=== PATIENT | male | born 1950 | race Caucasian/White ===

== ENCOUNTER → 2020-06-09 | Outpatient (CLI) | payer MEDICARE, BC ==
[~2020-06-09] MED LIST: ADDERALL 10 MG10 MG PO; FLOMAX0.4 MG PO; IBUPROFEN 800800 M1 PO; IMITREX 50 MG T50 MG PO; PERCOCET PO
== END ==
LOC: M.CT 13:13
PROVIDERS: ATTEND Internal Medicine
DX: N20.0 Calculus of kidney (principal); N40.0 Benign prostatic hyperplasia without lower urinary tract symptoms; K57.30 Diverticulosis of large intestine without perforation or abscess without bleeding; M54.42 Lumbago with sciatica, left side; M54.41 Lumbago with sciatica, right side; G89.29 Other chronic pain; F90.2 Attention-deficit hyperactivity disorder, combined type; R53.82 Chronic fatigue, unspecified; R63.4 Abnormal weight loss